=== PATIENT | male | born 1965 | race Caucasian/White ===

== ENCOUNTER 2017-11-15 05:42 | Day surgery (SDC) | payer OTHER ==
[2017-11-15] MEDS ORDERED: DIPRIVAN 200 MG/20 ML IV ONE (05:43)
[2017-11-15] MEDS ORDERED: APRESOLINE 20 MG/ML INJ IV ONE (05:43)
[2017-11-15] MEDS ORDERED: Lactated Ringers 1,000 ML IV SCH (06:00)
--- NOTE | 2017-11-15 08:36 | OP ---
SURGERY DATE/TIME: 11/15/2017 0803 PREOPERATIVE DIAGNOSIS: Screening exam. POSTOPERATIVE DIAGNOSIS: Normal colon. PROCEDURE: Colonoscopy. SURGEON: Dr. Ahumada. ANESTHESIA: MAC. Medications given by anesthesia department. HISTORY: The patient is a 52 year-old white male patient presenting now for his first screening colonoscopy. He was appraised of the risks of the procedure including the risk of perforation, phlebitis, untoward reaction to medication, bleeding and missed lesions. The patient verbalized his understanding and desired to have the procedure performed. DESCRIPTION OF PROCEDURE: The patient was given the medications by the anesthesia department. He had continuous pulse oximetry, ECG monitoring, intermittent blood pressure monitoring and tidal CO2 monitoring during the examination. He was placed in the left lateral decubitus position. A digital rectal examination was performed and revealed normal anal sphincter tone and no masses. The flexible Olympus pediatric colonoscope was used to intubate the rectum. A view of the colon was developed sequentially to the cecum. Upon insertion and withdrawal, including a retroflex view in the rectum, no mucosal lesions were encountered. The scope was removed from the patient who tolerated the procedure well and was sent back to OP recovery in good condition. The prep was noted to be fair.
[2017-11-15 09:13] VITALS: O2SAT 95
[2017-11-15 09:45] VITALS: BP 147/84; PULSE 85
== END 2017-11-15 09:40 | disposition home or self-care (01) ==
LOC: SDC 05:42
PROVIDERS: ATTEND Family Medicine
DX: Z12.11 Encounter for screening for malignant neoplasm of colon (principal); I25.10 Atherosclerotic heart disease of native coronary artery without angina pectoris; I10 Essential (primary) hypertension
CPT/HCPCS: J0360; J2704

== ENCOUNTER 2019-04-01 10:39 | Day surgery (SDC) | payer OTHER ==
[2019-04-01] MEDS ORDERED: Marcaine 0.5% SDV 10 ML IJ ONE (10:40)
[2019-04-01] MEDS ORDERED: Depo-Medrol 40 MG/ML IM ONE (10:40)
[2019-04-01] MEDS ORDERED: Ketamine HCl 50 MG/ML ONE (13:42)
[2019-04-01] MEDS ORDERED: DIPRIVAN 200 MG/20 ML IV ONE (13:42)
--- NOTE | 2019-04-01 14:57 | XRAY ---
Indication: Left shoulder injection. Intraoperative fluoroscopy was provided for 28 seconds. 2 digital spot images submitted for interpretation demonstrates needle tip projecting over the left glenohumeral joint superiorly. Small amount of contrast injected for needle tip placement. Correlate with intraoperative findings/report.
--- NOTE | 2019-04-01 16:38 | XRAY ---
28 seconds fluoroscopy time in surgery for left intra-articular and bursa injections.
[2019-04-01] MEDS ORDERED: Lactated Ringers 1,000 ML IV ONE (18:21)
== END 2019-04-01 14:06 | disposition home or self-care (01) ==
LOC: SDC-PAIN 10:39
PROVIDERS: ATTEND Psychiatry & Neurology Pain Medicine
DX: M19.012 Primary osteoarthritis, left shoulder (principal); M75.52 Bursitis of left shoulder; I10 Essential (primary) hypertension; J44.9 Chronic obstructive pulmonary disease, unspecified; F41.8 Other specified anxiety disorders; Z79.899 Other long term (current) drug therapy
CPT/HCPCS: 20610; 73030; 77002; J1030; J2704; Q9966

== ENCOUNTER 2019-05-06 14:23 | Day surgery (SDC) | payer OTHER ==
[2019-05-06] MEDS ORDERED: Sodium Chloride 0.9(Preservative Free) 10 ML IJ ONE (14:24)
[2019-05-06] MEDS ORDERED: Depo-Medrol 40 MG/ML IM ONE (14:24)
[2019-05-06] MEDS ORDERED: DIPRIVAN 200 MG/20 ML IV ONE (15:55)
[2019-05-06] MEDS ORDERED: Ketamine HCl 50 MG/ML ONE (15:56)
[2019-05-06] MEDS ORDERED: Lactated Ringers 1,000 ML IV ONE (16:03)
--- NOTE | 2019-05-06 16:40 | XRAY ---
Indication: Right L4-S1 transforaminal ISIS. Intraoperative fluoroscopy was provided for 30 seconds. 4 digital spot images submitted for interpretation demonstrates posterior needle tips projecting over the expected course of the right L4 and L5 nerve roots. Small amount of contrast injected for needle tip placement. Correlate with intraoperative findings/report.
--- NOTE | 2019-05-06 16:44 | XRAY ---
30 seconds fluoroscopy time in surgery for right L4-S1 transforaminal ISIS.
== END 2019-05-06 16:24 | disposition home or self-care (01) ==
LOC: SDC-PAIN 14:23
PROVIDERS: ATTEND Psychiatry & Neurology Pain Medicine
DX: M54.16 Radiculopathy, lumbar region (principal); I10 Essential (primary) hypertension; J44.9 Chronic obstructive pulmonary disease, unspecified; F41.8 Other specified anxiety disorders; I25.10 Atherosclerotic heart disease of native coronary artery without angina pectoris; M19.90 Unspecified osteoarthritis, unspecified site; Z79.899 Other long term (current) drug therapy
CPT/HCPCS: 64483; 64484; 72100; 77003; J1030; J2704; Q9966

== ENCOUNTER → 2019-12-16 | Day surgery (SDC) | payer OTHER | END | disposition home or self-care (01) | LOC: SDC-PAIN 10:48 | PROVIDERS: ATTEND Psychiatry & Neurology Pain Medicine | DX: Z53.8 Procedure and treatment not carried out for other reasons (principal) ==

== ENCOUNTER 2020-01-13 13:17 | Day surgery (SDC) | payer OTHER ==
[2020-01-13] MEDS ORDERED: BUPIVACAINE 0.5% VIAL IJ ONE (13:18)
[2020-01-13] MEDS ORDERED: Depo-Medrol 40 MG/ML IM ONE (13:18)
[2020-01-13] MEDS ORDERED: Xylocaine 1% Vial 30 ML PF IJ ONE (13:18)
--- NOTE | 2020-01-13 16:52 | XRAY ---
Indication: Bilateral SI joint injection. Intraoperative fluoroscopy was provided for 19 seconds. 4 digital spot images submitted for interpretation demonstrates posterior needle tip projecting over the inferior left and right SI joints. Correlate with intraoperative findings/report.
--- NOTE | 2020-01-13 17:17 | XRAY ---
19 seconds fluoroscopy time in surgery for bilateral SI joint injection.
== END 2020-01-13 15:30 | disposition home or self-care (01) ==
LOC: SDC-PAIN 13:17
PROVIDERS: ATTEND Psychiatry & Neurology Pain Medicine
DX: M46.1 Sacroiliitis, not elsewhere classified (principal); I10 Essential (primary) hypertension; J44.9 Chronic obstructive pulmonary disease, unspecified; F41.8 Other specified anxiety disorders
CPT/HCPCS: 72202; 77002; G0260; 27096; J1030; J2001